=== PATIENT | male | born 1965 | race Caucasian/White ===

== ENCOUNTER 2022-10-01 13:17 | Emergency (ER) | payer BC, SELFPAY ==
[2022-10-01 13:29] VITALS: BP 141/88; PULSE 72; RESP 16; TEMP 36.6; O2SAT 100
--- NOTE | 2022-10-01 13:54 | ED.EAR ---
HPI - Ear Problem General Chief complaint: Ear Stated complaint: sore throat,swollen glands, rt ear pain Time Seen by Provider: 10/01/22 13:50 Source: patient, RN notes reviewed and old records reviewed Mode of arrival: ambulatory Limitations: no limitations History of Present Illness HPI Narrative: 57 year old male who presents to [facility] care with complaint of sore throat, right ear pain and some swollen glands with voice sounding hoarse for the past 3 days. Patient is from up around [place] and is traveling through town on his way to [place] and wanted to have ear checked since he was having so much pressure to his right ear. Patient is asthmatic but has not had any acute cough or wheezing associated with present symptoms. He has been taking Mucinex DM and also Tylenol for his symptoms, denies any known fevers. MD Complaint: ear pain and other (sore throat, swollen glands) Location: right ear Duration: constant Severity: mild Discharge from ear: Reports no Treatment prior to arrival: oral analgesic and other (Mucinex DM) Related Data Home Medications Medication Instructions Recorded Confirmed metoprolol succinate 50 mg 50 mg PO DAILY 10/01/22 10/01/22 tablet,extended release 24 hr tadalafil 5 mg tablet 5 mg PO DAILY 10/01/22 10/01/22 Allergies Allergy/AdvReac Type Severity Reaction Status Date / Time No Known Allergies Allergy Verified 10/01/22 13:53 Review of Systems Review of Systems: CONSTITUTIONAL: Denies malaise, chills, sweats, or fever. EYES: Denies visual changes, redness, or discharge. ENT: Reports rhinorrhea, congestion, sinus pain,right otalgia and sore throat. CARDIOVASCULAR: Denies chest pain, palpitations, or edema. RESPIRATORY: Reports no acute cough.? Denies dyspnea. GASTROINTESTINAL: Denies abdominal pain, nausea, vomiting, diarrhea SKIN: Denies rash or itching. MUSCULOSKELETAL: Denies myalgia. NEUROLOGIC: Denies headache. All systems reviewed & are unremarkable except as noted in HPI and below PMFSH Past Medical History Medical History (Updated 10/02/22 @ 00:03 by Carlton Romero) Asthma Hypertension Surgical History Surgical History (Updated 10/01/22 @ 14:04 by Erendira Martinez NP) H/O right wrist surgery Social History Social History (Updated 10/01/22 @ 14:06 by Erendira Martinez NP) Smoking status: Never smoker Alcohol intake: current Alcohol use details: social Substance use type: does not use Living arrangements: with family Gender identity (if verbalized by the patient): Male Comments At time of signature, agree with nursing past medical, surgical, social and family history. There is no relevant family history pertinent to the presenting complaint Exam Narrative: GENERAL: Well-appearing, well-nourished, and in no acute distress. HEAD: Normocephalic EYES: PERRLA, conjunctivae clear ENT: Nares clear, turbinates edematous and erythematous, clear discharge. Mucous membranes moist. TM pearly fried with dull light reflex bilaterally; no tragal tenderness. Oropharynx erythematous without lesions. Tonsils red not enlarged and without exudate, no drooling, no hoarseness, no trismus, uvula midline.post nasal drainage NECK: Supple. No lymphadenopathy CHEST: Clear to auscultation, breath sounds equal. No wheezing, rhonchi, rales, or stridor. No respiratory distress, speaks in full sentences.SAO2 100% on room air HEART: Regular rate and rhythm. No murmur heard. SKIN: Warm, dry, no rash. NEURO: Alert and oriented x3. PSYCH: Normal mood and affect Course Course Emergency Course: Patient is aware of diagnosis, understands and agrees to treatment plan.? Anticipatory guidance given.? Patient agrees to follow-up as directed and is aware of reasons to seek care at the emergency department. Portions of this record may have been created with voice recognition software Level of Care: Express Care Visit Vital Signs Vital signs: Vit
== END 2022-10-01 14:07 | disposition home or self-care (01) ==
PROVIDERS: Emergency Provider Registered Nurse
DX: J06.9 Acute upper respiratory infection, unspecified (principal); J45.909 Unspecified asthma, uncomplicated; I10 Essential (primary) hypertension
CPT/HCPCS: 87081; 87880; 99213; G0463